=== PATIENT | male | born 1965 | race Caucasian/White ===

== ENCOUNTER 2016-06-25 22:09 | Inpatient (IN) ==
[2016-06-25] MEDS ORDERED: 0.9 % Sodium Chloride 1,000 ML IVC ONE (22:14)
[2016-06-25] MEDS ORDERED: *HR* HYDROmorphone (PF) 1 MG/ML SYRINGE IVP ONE (22:14)
[2016-06-25] MEDS ORDERED: Ondansetron 4 MG/2 ML VIAL IVP ONE (22:14)
--- NOTE | 2016-06-25 22:23 | Emergency Department Note ---
Disposition Clinical Impression: Small bowel obstruction, Nausea vomiting and diarrhea Disposition: Admitted As Inpatient Condition: Fair Time of Disposition: 00:08 Abdominal Pain HPI - General Chief Complaint: ED Abdominal Pain Stated Complaint: poss SBO Time Seen by Provider: 06/25/16 22:13 Source: patient, EMS Nursing Notes Reviewed: Yes Vital Signs Reviewed: Yes - History of Present Illness HPI Narrative: Patient is a 51-year-old male who presents to [facility] [place] ED with a chief complaint of abdominal pain. States his symptoms started last night about an hour and half after he had a meal of hamburger with onion rings. Admits to a few episodes of nausea and vomiting. Has had an episode of diarrhea earlier today and no bowel movement since then. Has felt hot but not measured a temperature. Patient denies any chest pain or difficulty breathing. Prior surgical history significant for cholecystectomy done at the [facility] in [place] many years ago. Past medical history also significant for type 2 diabetes, objective sleep apnea, hyperlipidemia, hypertension. Pt Subjective Complaint: abdominal pain Onset (ago): day(s) Consistency: constant, Worsening Location: diffuse Pain Severity: severe Pain Scale: 9 Quality: aching Radiation: none Migration to: no migration Improves with: nothing Worsens with: nothing Associated symptoms: Reports: nausea, vomiting, diarrhea, fever (subjective) Treatments prior to arrival: none - Related Data Home Medications Medication Instructions Recorded Confirmed Allopurinol [Zyloprim 100 MG] 100 mg PO DAILY 06/26/16 06/26/16 Atenolol [Tenormin] 37.5 mg PO DAILY 06/26/16 06/26/16 Atorvastatin Calcium [Lipitor] 30 mg PO DAILY 06/26/16 06/26/16 GlipiZIDE [Glipizide] 10 mg PO BID 06/26/16 06/26/16 Metformin [Glucophage] 1,000 mg PO BIDWM 06/26/16 06/26/16 Saxagliptin HCl [Onglyza] 5 mg PO DAILY 06/26/16 06/26/16 Tamsulosin HCl [Flomax] 0.8 mg PO DAILY 06/26/16 06/26/16 Allergies Allergy/AdvReac Type Severity Reaction Status Date / Time No Known Allergies Allergy Unverified 08/29/15 09:48 All systems ED: reviewed and negative except as stated. Abdominal Pain PMH - Past Medical History Medical history: Reports: diabetes, GERD, hypertension Male Surgical History: Reports: cholecystectomy Psychiatric history: Reports: no psych history - Social History Smoking status: Former smoker Alcohol use: Reports: none Drug use: Reports: none Physical Exam - General Limitations: no limitations General appearance: alert, in no apparent distress - Head Head exam: atraumatic, normocephalic, normal inspection - Eye Eye exam: Present: normal appearance, PERRL, EOMI - ENT ENT exam: normal exam, normal oropharynx, mucous membranes moist - Neck Neck exam: Present: normal inspection, full ROM, trachea midline - Chest Chest inspection: Present: normal inspection, symmetric chest wall rise - Respiratory Respiratory exam: Present: normal lung sounds bilaterally - Cardiovascular Cardiovascular exam: Present: regular rate, normal rhythm, normal heart sounds - Abdominal Exam Abdominal exam: Present: soft, tenderness, hyperactive bowel sounds. Absent: distention, guarding, rebound, rigidity Abdominal tenderness: Present: diffuse, severe - Extremities Exam Extremities exam: Present: normal inspection, full ROM. Absent: tenderness, pedal edema - Back Exam Back exam: Present: normal inspection, full ROM. Absent: tenderness - Neurological Exam Neurological exam: Present: alert, oriented X3 - Psychiatric Psychiatric exam: Present: normal affect, normal mood - Skin Skin exam: Present: warm, dry, intact, normal color Course Course Narrative: Patient seen and examined. [facility]. Abdominal x-ray had shown possible SBO. Abdominal lab work, CT abdomen and pelvis with IV contrast ordered. 1 L of fluids ordered as well as pain control and nausea control. - Reevaluation(s) Reevaluation #1: Lab work shows leukocytosis with a left shift. Lab work otherwise unremarkable. CT abdomen and pelvis shows ileus versus partial low-grade small bowel obstruction. We will admit to hospitalist service. I spoke with hospitalist Dr. Mathew who has accepted patient for admission. Time: 00:05 Vital Signs Temperature 98.3 F 06/25/16 22:14 Pulse Rate 89 06/25/16 22:14 Respiratory Rate 18 06/25/16 22:14 Blood Pressure 122/88 06/25/16 22:14 O2 Sat by Pulse Oximetry 95 06/25/16 22:14 Temperature 97.7 F 06/26/16 05:07 Pulse Rate 72 06/26/16 05:07 Respiratory Rate 18 06/26/16 05:07 Blood Pressure 148/83 06/26/16 05:07 O2 Sat by Pulse Oximetry 93 L 06/26/16 05:07 Oxygen Delivery Oxygen Delivery Room Air Abdominal Pain - Medical Records Medical records reviewed: Yes I reviewed the patient's medical records. - Lab Data Lab results reviewed: Yes I reviewed the patient's lab results. Result diagrams: 06/26/16 03:58 06/26/16 03:58 Lab Results 06/25/16 06/25/16 06/25/16 Range/Units 22:29 22:29 22:29 WBC 15.8 H (4.3-11.1) K/mcL RBC 6.17 H (4.19-5.50) M/mcL Hgb 16.5 (12.9-16.9) g/dL Hct 51.0 H (37.5-50.1) % MCV 82.7 L (83.0-100.0) fL MCH 26.7 L (28.0-33.3) pg MCHC 32.4 (31.6-35.5) g/dL RDW 14.5 (11.5-14.5) % Plt Count 198 (140-400) K/mcL MPV 11.6 (9.4-12.4) fL Immature Gran % 0.4 (0-4) % Seg Neutrophils % 72.9 % Lymphocytes % 19.2 % Monocytes % 6.3 % Eosinophils % 0.8 % Basophils % 0.4 % Neutrophils # 11.5 H (1.6-8.9) K/mcL Lymphocytes # 3.0 (0.6-4.6) K/mcL Monocytes # 1.0 (0.0-1.3) K/mcL Eosinophils # 0.1 (0.0-0.6) K/mcL Basophils # 0.1 (0.0-0.2) K/mcL Immature Plt Fraction 11.4 H (1.1-6.1) % Sodium (136-145) mEq/L Potassium (3.5-4.5) mEq/L Chloride (98-109) mEq/L Carbon Dioxide (19-29) mEq/L BUN (8-26) mg/dL Creatinine (0.72-1.25) mg/dL Est GFR ( Amer) (> 60) Est GFR (Non-Af Amer) (> 60) BUN/Creatinine Ratio (6-26) Glucose (70-99) mg/dL Calculated Osmolality (280-300) Lactic Acid 1.1 (0.5-2.2) mmol/L Calcium (8.6-10.8) mg/dL Total Bilirubin (0.2-1.2) mg/dL Direct Bilirubin (0.0-0.5) mg/dL Indirect Bilirubin (0.0-1.2) mg/dL AST (5-34) Units/L ALT (0-55) Units/L Alkaline Phosphatase (38-126) Units/L Troponin I 0.02 (0-0.03) ng/mL Serum Total Protein (6.0-8.3) g/dL Albumin (3.5-5.0) g/dL Globulin (2.4-3.5) g/dL Albumin/Globulin Ratio (1.1-2.2) Lipase (8-78) Units/L /02/01 Range/Units 22:29 WBC (4.3-11.1) K/mcL RBC (4.19-5.50) M/mcL Hgb (12.9-16.9) g/dL Hct (37.5-50.1) % MCV (83.0-100.0) fL MCH (28.0-33.3) pg MCHC (31.6-35.5) g/dL RDW (11.5-14.5) % Plt Count (140-400) K/mcL MPV (9.4-12.4) fL Immature Gran % (0-4) % Seg Neutrophils % % Lymphocytes % % Monocytes % % Eosinophils % % Basophils % % Neutrophils # (1.6-8.9) K/mcL Lymphocytes # (0.6-4.6) K/mcL Monocytes # (0.0-1.3) K/mcL Eosinophils # (0.0-0.6) K/mcL Basophils # (0.0-0.2) K/mcL Immature Plt Fraction (1.1-6.1) % Sodium 135 L (136-145) mEq/L Potassium 4.0 (3.5-4.5) mEq/L Chloride 103 (98-109) mEq/L Carbon Dioxide 22 (19-29) mEq/L BUN 19 (8-26) mg/dL Creatinine 1.18 (0.72-1.25) mg/dL Est GFR ( Amer) > 60 (> 60) Est GFR (Non-Af Amer) > 60 (> 60) BUN/Creatinine Ratio 16 (6-26) Glucose 160 H (70-99) mg/dL Calculated Osmolality 286 (280-300) Lactic Acid (0.5-2.2) mmol/L Calcium 9.0 (8.6-10.8) mg/dL Total Bilirubin 0.7 (0.2-1.2) mg/dL Direct Bilirubin 0.3 (0.0-0.5) mg/dL Indirect Bilirubin 0.4 (0.0-1.2) mg/dL AST 23 (5-34) Units/L ALT 41 (0-55) Units/L Alkaline Phosphatase 74 (38-126) Units/L Troponin I (0-0.03) ng/mL Serum Total Protein 7.5 (6.0-8.3) g/dL Albumin 3.4 L (3.5-5.0) g/dL Globulin 4.1 H (2.4-3.5) g/dL Albumin/Globulin Ratio 0.8 L (1.1-2.2) Lipase 19 (8-78) Units/L - Radiology Data Radiology results reviewed: Yes I reviewed the patient's radiology results. Abdomen/Pelvis CT 06/25/16 22:19 IMPRESSION: 1. Mild dilatation with air-fluid levels in the proximal jejunum. Gradual transition in the left mid abdomen with no discrete etiology detected. Pattern may represent ileus or partial low-grade bowel obstruction. 2. The distal ileum and colon are otherwise unremarkable. 3. Nonobstructing left renal calculus. D/ / Zeus Sandra MD / Zeus Sandra MD Interpreting Provider: Zeus Sandra MD - EKG Data EKG attestation: Yes I reviewed and interpreted this EKG. EKG results narrative: EKG done at 2240 shows normal sinus rhythm with a rate of [address] elevation or depression. Left axis deviation. Attestation Statement - Attestation Attestation: I examined this patient and my medical decision-making was reviewed with the SUPPORT ASSISTANT/PA/Advanced Practice Nurse/Resident Physician. I agree with the documented findings, disposition and treatment plan as described except to the extent set forth below. Patient to the emergency department for abdominal pain. The patient states it started after he ate at [employer] yesterday. [facility] that showed a small bowel obstruction. On exam he is awake and alert. He is ambulatory. He sitting upright. He has a soft abdomen with upper and left-sided tenderness without guarding. Plan. The patient is CT scan here as a possible early small bowel obstruction. His symptoms seem more consistent with a gastroenteritis. He will be admitted to medicine for observation.
[2016-06-25 22:39] LABS: Basophils # 0.1 K/mcL (0.0-0.2); Basophils % 0.4 %; Eosinophils # 0.1 K/mcL (0.0-0.6); Eosinophils % 0.8 %; Hemoglobin 16.5 g/dL (12.9-16.9); Immature Granulocytes % 0.4 % (0-4); Immature Platelets 11.4 % (1.1-6.1); Lymphocytes % 19.2 %; Mean Corpuscular HGB Conc 32.4 g/dL (31.6-35.5); Mean Corpuscular Hemoglobin 26.7 pg (28.0-33.3); Mean Corpuscular Volume 82.7 fL (83.0-100.0); Mean Platelet Volume 11.6 fL (9.4-12.4); Monocytes % 6.3 %; Neutrophils # 11.5 K/mcL (1.6-8.9); Platelet Count 198 K/mcL (140-400); Red Blood Count 6.17 M/mcL (4.19-5.50); Red Cell Distribution Width 14.5 % (11.5-14.5); Segmented Neutrophils % 72.9 %
[2016-06-25 22:52] LABS: Alanine Aminotransferase 41 Units/L (0-55); Albumin 3.4 g/dL (3.5-5.0); Albumin/Globulin Ratio 0.8 (1.1-2.2); Alkaline Phosphatase 74 Units/L (38-126); Aspartate Amino Transferase 23 Units/L (5-34); BUN/Creatinine Ratio 16 (6-26); Bilirubin,Direct 0.3 mg/dL (0.0-0.5); Bilirubin,Indirect 0.4 mg/dL (0.0-1.2); Bilirubin,Total 0.7 mg/dL (0.2-1.2); Blood Urea Nitrogen 19 mg/dL (8-26); Carbon Dioxide 22 mEq/L (19-29); Chloride 103 mEq/L (98-109); Globulin 4.1 g/dL (2.4-3.5); Glucose 160 mg/dL (70-99); Lipase 19 Units/L (8-78); Osmolality,Calculated 286 (280-300); Sodium 135 mEq/L (136-145); Total Protein 7.5 g/dL (6.0-8.3); eGFR For African Americans > 60 (> 60); eGFR For Non-African Americans > 60 (> 60)
--- NOTE | 2016-06-26 01:55 | Internal Med History&Physical ---
Date of Encounter: 06/26/16 Time of Encounter: 01:51 Assessment and Plan (1) Gastroenteritis Current visit: Yes Status: Acute Suspect most likely gastroenteritis given he has no vomiting and continues to have flatus, but cannot rule out early partial SBO Will support while NPO for now with maintenance IVF, analgesics, and anti- emetics If pain worsens, develop vomiting or bloody bowel movements, consider surgery consult and re-imaging Start empiric anaerobic coverage with Flagyl; will await blood and stool cultures prior to de-escalation (2) Non-insulin dependent type 2 diabetes mellitus Current visit: Yes Status: Chronic Stop home diabetic medications and start on low dose SSI q6HR accuchecks while NPO (3) Hypertension Current visit: Yes Status: Chronic Blood pressures WNL upon admission, will hold home anti-hypertensives for now while NPO Will order PRN Hydralazine IV for SBP > 170 Qualifiers: Qualified Code(s): I10 - Essential (primary) hypertension (4) LIS (obstructive sleep apnea) Current visit: Yes Status: Chronic Will continue home CPAP (5) DVT prophylaxis Current visit: Yes Status: Acute Heparin 5000 units BID Internal Medicine - H&P: HPI Chief complaint: abdominal pain Admitted From: Home Plans for Post Hospital Care: Home History of present illness: Mr. Yip is a 51 year old male who presents with abdominal pain, nausea, and diarrhea. He states that he first noticed nausea 2 nights ago before going to bed and had 3 episodes of diarrhea yesterday during the day. He describers the diarrhea as watery and green, but no blood. Has had no bowel movements since yesterday morning but states he has been passing gas still. Also reports a subjective fever and had some sweating during those episodes. He did not experience any abdominal pain until yesterday when he ate a hamburger and states the pain was diffuse in his upper abdomen. He states the pain is constant and is worse with movement but not worse with food intake. He tried Pepto Bismal which provided minimal relief. He denies having any vomiting, chest pain, shortness of breath, recent travels, or trying new foods. He does have history of cholecystectomy last year and also a feeding tube when he was a as he was born prematurely. He claims to have had a c-scope around 2007 for unknown reasons and states that was normal. Also states he had an EGD about 3-4 years ago but doesn't remember the results although hid state they "took samples". Past Med Surg Social Fam HX - Past Medical History Medical history: diabetes, GERD, hypertension Psychiatric history: no psych history - Social History Smoking Status: Former smoker Smokeless Tobacco Status: No Alcohol use: none Drug use: none - Family History Mother Age at : 62 Hx Family Neurologic Disorders: (Stroke) Father Hx Family Cardiac Disorders: (bypass sx) Internal Medicine - H&P: Meds Allopurinol [Zyloprim 100 MG] 100 mg PO DAILY 06/26/16 [History] Atenolol [Tenormin] 37.5 mg PO DAILY 06/26/16 [History] Atorvastatin Calcium [Lipitor] 30 mg PO DAILY 06/26/16 [History] GlipiZIDE [Glipizide] 10 mg PO BID 06/26/16 [History] Metformin [Glucophage] 1,000 mg PO BIDWM 06/26/16 [History] Saxagliptin HCl [Onglyza] 5 mg PO DAILY 06/26/16 [History] Tamsulosin HCl [Flomax] 0.8 mg PO DAILY 06/26/16 [History] Allergies No Known Allergies Allergy (Unverified 08/29/15 09:48) All Systems PM: A 10-system review of systems was performed and is negative for pertinent findings except as documented above in the HPI. - Constitutional Constitutional: fever(s), no chills, no night sweats - EENT Eyes: no change in vision, no discharge, no pain, no photophobia Ears: no ear discharge, no ear pain, no tinnitus Nose, mouth and throat: no dysphagia, no nasal discharge, no neck pain, no sore throat - Cardiovascular Cardiovascular ROS IM: diaphoresis, no chest pain, no dyspnea, no lightheadedness, no palpitations, no syncope - Respiratory Respiratory: no cough, no dyspnea, no wheezing, no excessive phlegm production - Gastrointestinal Gastrointestinal: abdominal pain (upper quadrants), diarrhea, nausea, no hematemesis, no hematochezia, no melena, no vomiting - Genitourinary Genitourinary ROS male: no hematuria, no urinary frequency, no urinary hesitancy , no urinary incontinence - Musculoskeletal Musculoskeletal ROS IM: no numbness, no tingling - Integumentary Integumentary IM: no rash, no unusual bruising - Neurological Neurological ROS: no confusion, no convulsions, no focal weakness, no numbness, no tingling, no tremor(s) - Hematologic/Lymphatic Hematologic/Lymphatic: no easy bruising - Constitutional Vitals: Temp Pulse Resp BP Pulse Ox 98.3 F 72 16 110/76 97 06/25/16 22:14 06/25/16 23:36 06/26/16 00:27 06/26/16 00:27 06/25/16 23:36 General appearance: Present: cooperative, morbidly obese, pleasant, no acute distress, answers questions appropriately - Head Head exam: Present: atraumatic, normocephalic - Eye Eye exam: Present: PERRL, conjuntiva pink, sclera anicteric - Neck Neck exam general surgery: Present: supple, trachea midline. Absent: lymphadenopathy - Respiratory Respiratory exam: Present: CTAB. Absent: accessory muscle use, rales, rhonchi, wheezes - Cardiovascular Cardiovascular exam: Present: RRR, +S1, +S2. Absent: diastolic murmur, gallop, rubs, systolic murmur - GI/Abdominal GI/Abdominal exam: Present: normal bowel sounds, soft, tenderness (LUQ > RUQ), no peritoneal signs. Absent: distended, firm, guarding, hernia Additional comments: scars noted s/p lap rolando 1 year ago, also has LUQ scar from feeding tube when he was a - Extremities Exam Extremities exam: Present: warm, radial pulses palpable and symetrical. Absent : calf tenderness, cyanotic, pedal edema - Neurological Exam Neurological exam: Present: alert, no focal deficits. Absent: facial droop, speech deficit - Skin Skin exam: Present: dry, intact Internal Med - H&P Results - Labs CBC & Chem 7: 06/25/16 22:29 06/25/16 22:29
[2016-06-26] MEDS ORDERED: Dextrose Gel 15 GM PO PRN ×2 (02:15)
[2016-06-26] MEDS ORDERED: Naloxone 0.4 MG/ML INJ IVP PRN (02:15)
[2016-06-26] MEDS ORDERED: D5% in Water 1,000 ML IV PRN (02:15)
[2016-06-26] MEDS ORDERED: *HR* Dextrose 50 % in Water (Syg) 50 ML SYRINGE IVP PRN (02:15)
[2016-06-26] MEDS ORDERED: Ondansetron 4 MG/2 ML VIAL IVP PRN (02:15)
[2016-06-26] MEDS ORDERED: *HR* Morphine 2 MG/ML SYRINGE IVP PRN (02:15)
[2016-06-26] MEDS: 0.9 % Sodium Chloride 1,000 ML IVC SCH ×2 (03:14→15:05)
[2016-06-26 05:13] LABS: Basophils % 0.3 %; Eosinophils # 0.1 K/mcL (0.0-0.6); Eosinophils % 0.9 %; Hematocrit 47.8 % (37.5-50.1); Hemoglobin 15.6 g/dL (12.9-16.9); Immature Granulocytes % 0.5 % (0-4); Lymphocytes # 2.2 K/mcL (0.6-4.6); Lymphocytes % 17.7 %; Mean Corpuscular HGB Conc 32.6 g/dL (31.6-35.5); Mean Corpuscular Hemoglobin 27.1 pg (28.0-33.3); Mean Platelet Volume 12.5 fL (9.4-12.4); Monocytes # 0.7 K/mcL (0.0-1.3); Monocytes % 5.9 %; Neutrophils # 9.4 K/mcL (1.6-8.9); Platelet Count 177 K/mcL (140-400); Red Blood Count 5.76 M/mcL (4.19-5.50); Red Cell Distribution Width 14.3 % (11.5-14.5); Segmented Neutrophils % 74.7 %
--- NOTE | 2016-06-26 05:16 | Event Note ---
Date of Encounter: 06/26/16 Time of Encounter: 05:16 Patient seen and examined with medical education manager. Agree with assessment. Suspect gastroenteritis vs. food poisoning.
[2016-06-26 05:33] LABS: Hemoglobin A1C 7.7 %
[2016-06-26 05:36] LABS: BUN/Creatinine Ratio 17 (6-26); Blood Urea Nitrogen 18 mg/dL (8-26); Calcium 8.1 mg/dL (8.6-10.8); Carbon Dioxide 21 mEq/L (19-29); Chloride 105 mEq/L (98-109); Glucose 177 mg/dL (70-99); Osmolality,Calculated 288 (280-300); Potassium 4.2 mEq/L (3.5-4.5); Sodium 136 mEq/L (136-145); eGFR For African Americans > 60 (> 60); eGFR For Non-African Americans > 60 (> 60)
[2016-06-26] MEDS: *HR* Heparin 5,000 UNIT/ML VIAL SQ SCH ×2 (05:36→17:15)
[2016-06-26] MEDS: Pantoprazole 40 MG VIAL IVP SCH ×2 (05:36→17:15)
[2016-06-26] MEDS: Insulin LISPRO 300 UNITS/3 ML VIAL SQ SCH ×3 (05:36→18:21)
[2016-06-26] MEDS: MetroNIDAZOLE 500 MG/100 ML 500 MG/100 ML BAG IVPB SCH ×3 (08:30→23:54)
[2016-06-26] MEDS ORDERED: Acetaminophen 325 MG TABLET PO PRN (10:22)
--- NOTE | 2016-06-26 16:23 | Event Note ---
Date of Encounter: 06/26/16 Time of Encounter: 16:19 patient seen at the bedside, admitted for abdominal pain. first had diarrhea , then started castillo abdominal pain, has not moved bowels for the last 2 days, however says that he is passing gas. CT abd done that shows ileus or partial SBO. On exam today, he says the pain is a lot better, no n/v. he has leucocytosis that has improved. bowel sounds present on exam. HE may have an episode of viral GE causing diarrhea followed by ileus. will continue the flagyl for now, Was kept NPO overnight. will start clears today and see if he tolerates. electrolytes are normal.' wean off IVF.
[2016-06-26] MEDS ORDERED: Insulin LISPRO 300 UNITS/3 ML VIAL SQ SCH ×2 (21:00)
[2016-06-27] MEDS: 0.9 % Sodium Chloride 1,000 ML IVC SCH ×2 (01:05→10:04)
[2016-06-27] MEDS: *HR* Heparin 5,000 UNIT/ML VIAL SQ SCH (05:17)
[2016-06-27] MEDS: Pantoprazole 40 MG VIAL IVP SCH (05:17)
[2016-06-27] MEDS: MetroNIDAZOLE 500 MG/100 ML 500 MG/100 ML BAG IVPB SCH (07:23)
[2016-06-27] MEDS: Insulin LISPRO 300 UNITS/3 ML VIAL SQ SCH ×2 (08:00→12:20)
[2016-06-27 08:31] LABS: Basophils % 0.5 %; Eosinophils # 0.1 K/mcL (0.0-0.6); Eosinophils % 1.6 %; Hematocrit 45.5 % (37.5-50.1); Hemoglobin 14.5 g/dL (12.9-16.9); Immature Granulocytes % 0.4 % (0-4); Lymphocytes # 1.9 K/mcL (0.6-4.6); Lymphocytes % 25.4 %; Mean Corpuscular HGB Conc 31.9 g/dL (31.6-35.5); Mean Corpuscular Hemoglobin 26.6 pg (28.0-33.3); Mean Corpuscular Volume 83.5 fL (83.0-100.0); Mean Platelet Volume 12.1 fL (9.4-12.4); Monocytes # 0.5 K/mcL (0.0-1.3); Monocytes % 7.2 %; Neutrophils # 4.9 K/mcL (1.6-8.9); Platelet Count 164 K/mcL (140-400); Red Blood Count 5.45 M/mcL (4.19-5.50); Red Cell Distribution Width 14.2 % (11.5-14.5); Segmented Neutrophils % 64.9 %
[2016-06-27 08:47] LABS: BUN/Creatinine Ratio 12 (6-26); Blood Urea Nitrogen 13 mg/dL (8-26); Calcium 7.9 mg/dL (8.6-10.8); Carbon Dioxide 25 mEq/L (19-29); Chloride 108 mEq/L (98-109); Glucose 145 mg/dL (70-99); Osmolality,Calculated 293 (280-300); Potassium 3.9 mEq/L (3.5-4.5); Sodium 140 mEq/L (136-145); eGFR For African Americans > 60 (> 60); eGFR For Non-African Americans > 60 (> 60)
[2016-06-27 12:09] VITALS: BP 128/80
--- NOTE | 2016-06-27 15:17 | Discharge Summary ---
Date of Encounter: 06/27/16 Time of Encounter: 15:15 - Discharge Diagnosis (1) Ileus Priority: Primary Status: Acute (2) Gastroenteritis Priority: Primary Status: Acute - Discharge Medications Prescriptions: MetroNIDAZOLE [Flagyl] 500 mg PO TID 5 Days Home Medications: Allopurinol [Zyloprim 100 MG] 100 mg PO DAILY 06/26/16 [History] Atenolol [Tenormin] 12.5 mg PO DAILY 06/26/16 [History] Atorvastatin Calcium [Lipitor] 10 mg PO DAILY 06/26/16 [History] GlipiZIDE [Glipizide] 10 mg PO BID 06/26/16 [History] Lisinopril [Zestril] 20 mg PO DAILY 06/26/16 [History] Meloxicam [Mobic] 15 mg PO DAILY 06/26/16 [History] Metformin [Glucophage] 1,000 mg PO BIDWM 06/26/16 [History] Polyethylene Glycol 3350 [MiraLAX bowel prep] 17 gm PO DAILY 06/26/16 [History] Saxagliptin HCl [Onglyza] 5 mg PO DAILY 06/26/16 [History] Tamsulosin HCl [Flomax] 0.8 mg PO DAILY 06/26/16 [History] MetroNIDAZOLE [Flagyl] 500 mg PO TID 5 Days 06/27/16 [Rx] Allergies/Adverse Reactions: Allergies No Known Allergies Allergy (Unverified 08/29/15 09:48) Date of admission: 06/26/16 00:06 [facility] Discharging clinician: Ailyn Sosa Anticipated date of discharge: 06/27/16 - Patient Status Disposition: Home, Self-Care Condition: Fair Functional capacity at discharge: independent ambulation Overall status at discharge: patient is back to baseline - Discharge Instructions Follow Up With: [facility] [Primary Care Provider] - - Diet and Activity Activity: resume usual activities as tolerated Diet: advance to your usual diet Interval History: Mr. Yip is a 51 year old male who presents with abdominal pain, nausea, and diarrhea. first had diarrhea , then started castillo abdominal pain, has not moved bowels for the last 2 days, however says that he is passing gas. CT abd done that shows ileus or partial SBO. On exam today, he says the pain is a lot better, no n/v. he has leucocytosis that has improved. bowel sounds present on exam. HE may have an episode of viral GE causing diarrhea followed by post enteritis ileus that has resolved. diet was gradually advanced which he tolerated well . I will dc him with 5 more days of flagyl. he is being dc in stable condition. Hospital course: Mr. Yip is a 51 year old male Time spent discussing smoking cessation with patient: more than 10 minutes - Time Spent with Patient Total time spent providing and/or coordinating discharge services: Greater than 30 minutes - Constitutional Vitals: Temp Pulse Resp BP Pulse Ox 98.0 F 63 18 128/80 97 06/27/16 12:07 06/27/16 12:07 06/27/16 12:07 06/27/16 12:07 06/27/16 12:07 General appearance: Present: cooperative, morbidly obese, pleasant, no acute distress, answers questions appropriately Exam: - Head Head exam: Present: atraumatic, normocephalic - Eye Eye exam: Present: PERRL, conjuntiva pink, sclera anicteric - Neck Neck exam general surgery: Present: supple, trachea midline. Absent: lymphadenopathy - Respiratory Respiratory exam: Present: CTAB. Absent: accessory muscle use, rales, rhonchi, wheezes - Cardiovascular Cardiovascular exam: Present: RRR, +S1, +S2. Absent: diastolic murmur, gallop, rubs, systolic murmur - GI/Abdominal GI/Abdominal exam: Present: normal bowel sounds, soft, non tender, no peritoneal signs. Absent: distended, firm, guarding, hernia Additional comments: scars noted s/p lap [place] 1 year ago, also has LUQ scar from feeding tube when he was a - Extremities Exam Extremities exam: Present: warm, radial pulses palpable and symetrical. Absent : calf tenderness, cyanotic, pedal edema - Neurological Exam Neurological exam: Present: alert, no focal deficits. Absent: facial droop, speech deficit - Skin Skin exam: Present: dry, intact
--- NOTE | 2016-06-28 15:10 | Electrocardiograph Report ---
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
== END 2016-06-27 16:04 | disposition home or self-care (01) | DRG 389 ==
LOC: EMEROO 22:09 → SUATTDRO 06-26 00:06 → 3ANU 06-26 00:06
PROVIDERS: ADMIT Internal Medicine; ATTEND Internal Medicine Endocrinology, Diabetes & Metabolism

== ENCOUNTER 2018-10-09 12:25 | Inpatient (IN) ==
--- NOTE | 2018-10-09 12:59 | Emergency Department Note ---
Disposition Clinical Impression: RACHID (acute kidney injury) Disposition: Admitted As Inpatient Condition: Fair Time of Disposition: 15:15 General Adult HPI - General Chief complaint: ED Abdominal Pain Stated complaint: flank pain Time Seen by Provider: 10/09/18 12:27 Source: patient Mode of arrival: EMS Limitations: no limitations Nursing Notes Reviewed: Yes Vital Signs Reviewed: Yes - History of Present Illness HPI Narrative: Patient is a 53-year-old male who is being sent from the [place] for concern for acute renal failure. Patient with known history of hypertension, lipidemia, COPD as well as diabetes mellitus type 2. Patient currently on sulfonylurea medication for diabetes is uncontrolled. Patient states over the past week he has had generalized malaise and fatigue with injected fevers and chills no nausea, vomiting or abdominal pain. Has also had slight cough without production. He states this is very similar to his COPD. He is not on oxygen at home. He states that he was [facility] as he was concerned that he had a kidney infection, at that point in time a serum creatinine was performed which showed a significant elevation. Patient states he has been diagnosed with kidney disease in the past, he was also follow-up with nephrology however never did. He does not know the timeline upon this diagnosis. Upon review of patient[facility] that was sent today, patient had a CT of the abdomen and pelvis which showed nonischemic and left-sided nephrolithiasis without obstruction or hydronephrosis, chest x-ray shows no acute process, hemoglobin is 15.4, WBCs of 6.7, calcium of 8.4, sodium 134, potassium of 4.0, chloride 100, bicarbonate 24, glucose of 33, serum creatinine of 5.36. Urinalysis is clear, with negative bilirubin, negative ketones, moderate blood with negative nitrate and negative leuk esterase. Pain Scale: 8 - Related Data Home Medications Medication Instructions Recorded Confirmed Allopurinol [Zyloprim 100 MG] 100 mg PO DAILY 06/26/16 10/09/18 Atenolol [Tenormin] 12.5 mg PO DAILY 06/26/16 10/09/18 Atorvastatin Calcium [Lipitor] 10 mg PO DAILY 06/26/16 10/09/18 Lisinopril [Zestril] 20 mg PO DAILY 06/26/16 10/09/18 Saxagliptin HCl [Onglyza] 5 mg PO DAILY 06/26/16 10/09/18 Tamsulosin HCl [Flomax] 0.8 mg PO DAILY PRN 06/26/16 06/26/16 glipiZIDE [Glipizide] 10 mg PO BID 06/26/16 10/09/18 metFORMIN [Glucophage] 1,000 mg PO BIDWM 06/26/16 10/09/18 Allergies Allergy/AdvReac Type Severity Reaction Status Date / Time No Known Allergies Allergy Unverified 08/29/15 09:48 All systems ED: reviewed and negative except as stated. Review of Systems: As Per HPI Constitutional: Denies: fever, chills ENT ED: Reports: congestion Cardiovascular: Denies: chest pain, palpitations, dyspnea on exertion, syncope Respiratory: Reports: cough. Denies: dyspnea, wheezes, hemoptysis Gastrointestinal: Denies: abdominal pain, nausea, vomiting, hematemesis, melena, hematochezia Genitourinary: Denies: urgency, dysuria, frequency Musculoskeletal: Reports: back pain. Denies: neck pain Integumentary: Denies: rash Neurological: Denies: headache, weakness, confusion Endocrine: Reports: fatigue Past Medical History - Past Medical History Medical history: Reports: diabetes, GERD, hypertension Surgical history: Reports: cholecystectomy Psychiatric history: Reports: no psych history - Social History Smoking Status: Former smoker Smokeless Tobacco Status: No Alcohol use: Reports: none Drug use: Reports: none Physical Exam General: Conversant. No apparent distress. Follow commands. Appears stated age. Neck: No JVD. Trachea midline. Neck supple. Eyes: PERRL. No scleral icterus. HENT: Normocephalic and atraumatic. Moist mucus membranes. Cardiovascular: Regular rate and rhythm. Normal S1 and S2. No murmurs appreciated. Normal capillary refill. Extremities well perfused with 2+ distal pulses bilaterally. No edema. Pulmonary: Normal and equal breath sounds bilaterally, anteriorly and posteriorly. No wheezes, rales, or rhonchi. Not in respiratory distress. Speaks in full sentences. Abdomen: Soft, nondistended, without tenderness. No bruits or masses. No guarding or rebound. Patient with no CVA tenderness bilaterally. No cervical, thoracic or midline tenderness to the lumbar spine. Neuro: Alert and oriented x3. No slurred speech. No focal deficits noted. Skin: No rashes noted on visualized skin. Musculoskeletal: No bony abnormalities visualized. Moves all extremities. Psych: Normal mood. Pleasant. Makes appropriate eye contact. - General General appearance: alert Course - Consultations Consultation #1: Spoke with Dr. Bautista, with nephrology, states the patient at this point in time is a candidate for admission, as the patient is currently stable and there is no acute intervention is needed here in the ER prior to admission, she states admitted to the hospital service and she will consult and follow along for further evaluation. Time: 14:00 Vital Signs Temperature 98.2 F 10/09/18 12:32 Pulse Rate 62 10/09/18 12:32 Respiratory Rate 18 10/09/18 12:32 Blood Pressure 140/87 10/09/18 12:32 O2 Sat by Pulse Oximetry 98 10/09/18 12:32 Temperature 98.2 F 10/09/18 12:32 Pulse Rate 56 10/09/18 15:04 Respiratory Rate 15 10/09/18 15:04 Blood Pressure 137/84 10/09/18 15:04 O2 Sat by Pulse Oximetry 97 10/09/18 15:04 Oxygen Delivery Oxygen Delivery Room Air Medical Decision Making - [facility] Narrative Medical decision making narrative: Patient is a 53-year-old male who is presenting for concern of acute renal fail ure by the [place]. On examination, patient is alert and oriented 3, in no acute distress, leaning of bilateral flank pain. Patient's vital signs are within normal limits. Upon [facility] the [facility], it appears the patient has chronic renal failure with a recent serum creatinine of 5.45, the only recent blood work that was performed at [place] was in 2017 which showed a normal serum creatinine. Patient states that he is currently urinating without any symptoms. Patient's potassium is within normal limits. This is appears to chronic renal failure with possible acute component. I did discuss this case with Dr. Bautista, with nephrology, who agrees with admission at this point, she will perform consultation once patient is admitted. Patient agrees with disposition of admission. Further lab work including lactic acidosis was performed here which was unremarkable. Patient otherwise is remained stable here in the ER. - Medical Records Medical records reviewed: Yes I reviewed the patient's medical records. - Lab Data Lab results reviewed: Yes I reviewed the patient's lab results. Lab Results 10/09/18 Range/Units 13:13 Lactic Acid 1.1 (0.5-2.2) mmol/L - Radiology Data Radiology results reviewed: Yes I reviewed the patient's radiology results.
[2018-10-09] MEDS ORDERED: *HR* FentaNYL (PF) 100 MCG/2 ML VIAL IVP ONE (14:27)
--- NOTE | 2018-10-09 14:30 | Emergency Department Note ---
Disposition Clinical Impression: RACHID (acute kidney injury) Disposition: Admitted As Inpatient Condition: Fair Referrals: [facility],PCP [Primary Care Provider] - Forms: ED Satisfaction Letter, Work/School Release Time of Disposition: 14:29 General Adult HPI - General Chief complaint: ED Abdominal Pain Stated complaint: flank pain Time Seen by Provider: 10/09/18 12:27 Source: patient - History of Present Illness Pain Scale: 8 - Related Data Home Medications Medication Instructions Recorded Confirmed Allopurinol [Zyloprim 100 MG] 100 mg PO DAILY 06/26/16 10/09/18 Atenolol [Tenormin] 12.5 mg PO DAILY 06/26/16 10/09/18 Atorvastatin Calcium [Lipitor] 10 mg PO DAILY 06/26/16 10/09/18 Lisinopril [Zestril] 20 mg PO DAILY 06/26/16 10/09/18 Saxagliptin HCl [Onglyza] 5 mg PO DAILY 06/26/16 10/09/18 Tamsulosin HCl [Flomax] 0.8 mg PO DAILY PRN 06/26/16 06/26/16 glipiZIDE [Glipizide] 10 mg PO BID 06/26/16 10/09/18 metFORMIN [Glucophage] 1,000 mg PO BIDWM 06/26/16 10/09/18 Allergies Allergy/AdvReac Type Severity Reaction Status Date / Time No Known Allergies Allergy Unverified 08/29/15 09:48 Past Medical History - Past Medical History Medical history: Reports: diabetes, GERD, hypertension Surgical history: Reports: cholecystectomy Psychiatric history: Reports: no psych history - Social History Smoking Status: Former smoker Smokeless Tobacco Status: No Alcohol use: Reports: none Drug use: Reports: none Physical Exam - General General appearance: alert Course - Consultations Consultation #1: discussed case with Dr. Cummins and she accepts patient to her service. Time: 15:18 Vital Signs Temperature 98.2 F 10/09/18 12:32 Pulse Rate 62 10/09/18 12:32 Respiratory Rate 18 10/09/18 12:32 Blood Pressure 140/87 10/09/18 12:32 O2 Sat by Pulse Oximetry 98 10/09/18 12:32 Temperature 98.2 F 10/09/18 12:32 Pulse Rate 56 10/09/18 15:04 Respiratory Rate 15 10/09/18 15:04 Blood Pressure 137/84 10/09/18 15:04 O2 Sat by Pulse Oximetry 97 10/09/18 15:04 Oxygen Delivery Oxygen Delivery Room Air Medical Decision Making - Lab Data Lab Results 10/09/18 Range/Units 13:13 Lactic Acid 1.1 (0.5-2.2) mmol/L Attestation Statement - Attestation Attestation: I reviewed the residents documentation and agree with the residents assessment and plan of care. I have personally had face to face time with the patient. (Brief History, Brief Exam, and MDM) I personally supervised and was present for the reyez/critical portions of the following procedures completed by the resident: (add procedures performed here). 53 year old male prsents ot the ED with complaints of bilateral flank pain [facility] and it appears he has worsening crn of 5.6 and last knonw we have was normal. CT shows a renal stone without hydro. WE have discussed case with nephrology and they have agreed to see in consult. ADMit to medicine.
[2018-10-09] MEDS ORDERED: Naloxone 0.4 MG/ML INJ IVP PRN (15:53)
[2018-10-09] MEDS ORDERED: Ondansetron 4 MG/2 ML VIAL IVP PRN (15:53)
--- NOTE | 2018-10-09 16:06 | Internal Med History&Physical ---
Date of Encounter: 10/09/18 Time of Encounter: 15:56 Internal Medicine - H&P: HPI Chief complaint: Flank pain Admitted From: Emergency Dept History of present illness: Freddie Yip is a 53 M w hx morbid obesity, HTN, HLD, DM2, CKD3a, gout, COPD, who p/w renal failure. Pt transferred to [place] ED from [place] [facility] for labs suggestive of severe RACHID. Patient states that two weeks ago, he attended a convention and one of his buddies was sick and accidentally cough/sneezed on him. About a week later, he started to develop "common crud" which he uses to describe a viral syndrome of malaise, myalgias, and fatigue, associated with coughing and diarrhea. Two days ago, he noticed crampy/achy pain in his R flank, and today woke up from sleep due to sharp pains in bilateral flank. Patient states that he's been nauseated the last few days, too, and therefore not eating much, which he knows is bad to skip meals due to his diabetes. He has therefore been trying to stay hydrated and reports drinking as much as what he thinks is 1 gallon of water daily. Sugars ranging 150-300 in last few days. Diarrhea finally improving. Pt states that he continues to have fever/chills but continues to urinate, more than his usual due to the fluids he's drinking. He denies rashes, denies joint swelling other than few remote gout attacks, denies oliguria or concentration of urine. In the [place] ED, pt vitals unremarkable. Labs show Hb 15, WBC 7, Na 134, K 4, Cl 100, bicarb 24, glucose 33, Cr 5.4. UA moderate blood. He underwent CT a/p showing nonobstructive left sided nephrolithiasis, and CXR unremarkable. Sent to [place] for further eval. Past medical, surgical, social, and family histories reviewed and updated as below, with addition to FHx of several family members with heart disease but denies FHx of renal disease. Past Med Surg Social Fam HX - Past Medical History Medical history: diabetes, GERD, hypertension Additional medical history: Sleep apnea. Gout Psychiatric history: no psych history - Past Surgical History Surgical History: cholecystectomy - Social History Smoking Status: Former smoker Smokeless Tobacco Status: No Alcohol use: none Drug use: none - Family History Mother Hx Family Neurologic Disorders: (Stroke) Father Hx Family Cardiac Disorders: (bypass sx) Internal Medicine - H&P: Meds Allopurinol [Zyloprim 100 MG] 100 mg PO DAILY 06/26/16 [History] Tamsulosin HCl [Flomax] 0.8 mg PO DAILY PRN 06/26/16 [History] Aspirin [Lo-Dose Aspirin EC] 81 mg PO DAILY 10/09/18 [History] Atorvastatin Calcium [Lipitor] 10 mg PO DAILY 10/09/18 [History] Cholecalciferol (Vitamin D3) [Vitamin D3] 3,000 unit PO DAILY 10/09/18 [History] Dulaglutide [Trulicity] 1 insert SQ QWEEK 10/09/18 [History] Glimepiride [Amaryl] 8 mg PO QAM 10/09/18 [History] Losartan/Hydrochlorothiazide [Losartan-Hctz 100-12.5 mg Tab] 1 tab PO DAILY 10/09/18 [History] Metoprolol Succinate [Kapspargo Sprinkle] 25 mg PO DAILY 10/09/18 [History] Omeprazole [PriLOSEC] 20 mg PO DAILY 10/09/18 [History] Allergy/AdvReac Type Severity Reaction Status Date / Time No Known Allergies Allergy Unverified 08/29/15 09:48 All Systems PM: A 10-system review of systems was performed and is negative for pertinent findings except as documented above in the HPI. - Constitutional Vitals: Temp Pulse Resp BP Pulse Ox 98.2 F 56 15 137/84 97 10/09/18 12:32 10/09/18 15:04 10/09/18 15:04 10/09/18 15:04 10/09/18 15:04 Exam: General: NAD, AAOx3, good eye contact, uncomfortable appearing and morbidly obese with mild lisbet complexion but overall nontoxic Head: Atraumatic, normocephalic. Face symmetric Eyes: EOMI, sclerae anicteric ENT: Mucous membranes moist. Normal oral mucosa and poor dentition. Trachea midline. Thoracic: No visible chest wall deformities. Normal breath sounds b/l, no wheezing or crackles Cardio: Normal S1 and S2, regular rate and rhythm. Unable to assess for JVD. Abdomen: Firm but not tense or distended, nontender, obese Extremities: Warm, well perfused. DP pulses 2+ b/l. No clubbing, cyanosis. Does have 1+ pitting edema b/l legs Skin: Intact. No rashes, bruises, or ulcers Neuro: Awake, fully oriented. Good memory, concentration, attention. Speech fluent. CN II-XII grossly intact. Strength 5/5 in b/l UE and LE - Summary of Assessment and Plan Summary of Assessment and Plan: Freddie Yip is a 53 M w hx morbid obesity, HTN, HLD, DM2 c/b microalbuminuria, gout, COPD, who p/w b/l fevers, myalgias, malaise, diarrhea, and flank pain, found to have elevated Cr, consistent with RACHID suspected from acute viral illness and dehydration. RACHID: hx viral illness w nausea/diarrhea and membranes dry, however does have b/l leg edema, and review of remote labs shows Cr 1.1 w UA mild proteinuria suggestive of early diabetic nephrosclerosis, and recent [facility] U[facility] w hematuria. Hx gout could indicate uric acid nephropathy or perhaps "gout" was synovitis. Very possible acute on chronic kidney disease, too. - LR@125 and see if improves w hydration - collect urine for UA, microscopy, Ulytes, p:cr - 24h urine - strict I&Os - recheck BMP, add uric acid, Mg, P - STACY, ANCA - BMP daily - hold metformin, allopurinol, lisinopril - Neph consult for additional evaluation DM2: uncontrolled, holding home PO, utilize SSI HTN: home toprol 25, holding home hctz/losartan 100/12.5 HLD: home lipitor 10, ASA 81 COPD: nebs prn but not on home O2 Gout: holding allopurinol GERD: holding PPI Morbid obesity: BMI 41 PPx: sqh Activity: ambulate FEN: renal, MIVF as above Lines: PIV Consults: Neph Code: Full Dispo: patient requires inpatient eval and management at this time. Anticipate 2-3 days. Will be homegoing
[2018-10-09] MEDS ORDERED: D5% in Water 1,000 ML IVC PRN (16:21)
[2018-10-09] MEDS ORDERED: *HR* Dextrose 50 % in Water (Syg) 50 ML SYRINGE IVP PRN (16:21)
[2018-10-09] MEDS ORDERED: Dextrose Gel 15 GM/37.5 ML TUBE PO PRN ×2 (16:21)
[2018-10-09 16:58] LABS: Hematocrit 46.3 % (37.5-50.1); Hemoglobin 15.5 g/dL (12.9-16.9); Mean Corpuscular HGB Conc 33.5 g/dL (31.6-35.5); Mean Corpuscular Hemoglobin 28.8 pg (28.0-33.3); Mean Corpuscular Volume 85.9 fL (83.0-100.0); Mean Platelet Volume 12.3 fL (9.4-12.4); Platelet Count 140 K/mcL (140-400); Red Blood Count 5.39 M/mcL (4.19-5.50); Red Cell Distribution Width 12.9 % (11.5-14.5); White Blood Count 7.6 K/mcL (4.3-11.1)
[2018-10-09 17:07] LABS: Prothrombin Time 11.9 Seconds (9.4-12.1)
[2018-10-09 17:21] LABS: Albumin 3.9 g/dL (3.5-5.7); Albumin/Globulin Ratio 1.1 (1.1-2.2); Bilirubin,Direct 0.1 mg/dL (0.0-0.2); Bilirubin,Indirect 0.5 mg/dL (0.0-1.2); Bilirubin,Total 0.6 mg/dL (0.3-1.0); Calcium 8.7 mg/dL (8.6-10.3); Globulin 3.4 g/dL (2.4-3.5); Magnesium 1.9 mg/dL (1.6-2.6); Phosphorous 4.4 mg/dL (2.7-4.5); Potassium 3.8 mEq/L (3.5-5.1); Total Protein 7.3 g/dL (6.4-8.9)
[2018-10-09] MEDS: Ringers Solution, Lactated 1,000 ML IVC SCH (18:49)
[2018-10-09] MEDS: *HR* Heparin 5,000 UNIT/ML VIAL SQ SCH (18:50)
[2018-10-09] MEDS: Insulin LISPRO 300 UNITS/3 ML VIAL SQ SCH ×2 (18:50→20:21)
[2018-10-09 20:34] LABS: Bilirubin,Urine Negative (Negative); Blood,Urine Moderate (Negative); Clarity,Urine Clear (Clear); Color,Urine Yellow (Yellow); Glucose,Urine (UA) Normal (Normal); Ketones,Urine Negative (Negative); Leukocyte Esterase,Urine Negative (Negative); Nitrite,Urine Negative (Negative); PH,Urine 5.5 pH Units (5.0-8.0); Protein,Urine 30 mg/dL (Neg-Trace); Specific Gravity,Urine 1.019 (1.010-1.025); Urobilinogen,Urine Normal (Normal)
[2018-10-09 20:36] LABS: Bacteria,Urine None Seen per hpf (None-Few); Hyaline Casts,Urine None Seen per lpf (None-Few); Squamous Epithelial Cell,Urine Moderate per lpf (None-Few); WBC,Urine 0-3 per hpf (0-3)
[2018-10-09 20:59] LABS: Protein/Creatinine Ratio,Urine 0.45 mg/mg (0.00-0.20); Sodium, Urine 37.2 mEq/L
[2018-10-10] MEDS: *HR* Heparin 5,000 UNIT/ML VIAL SQ SCH ×4 (00:49→23:13)
[2018-10-10] MEDS: Ringers Solution, Lactated 1,000 ML IVC SCH (02:24)
[2018-10-10 05:23] LABS: Hematocrit 42.2 % (37.5-50.1); Mean Corpuscular HGB Conc 32.7 g/dL (31.6-35.5); Mean Corpuscular Hemoglobin 27.7 pg (28.0-33.3); Mean Corpuscular Volume 84.7 fL (83.0-100.0); Mean Platelet Volume 12.1 fL (9.4-12.4); Platelet Count 115 K/mcL (140-400); Red Blood Count 4.98 M/mcL (4.19-5.50); White Blood Count 6.8 K/mcL (4.3-11.1)
[2018-10-10 05:24] LABS: Hemoglobin 13.8 g/dL (12.9-16.9)
[2018-10-10 05:42] LABS: Calcium 8.5 mg/dL (8.6-10.3); Potassium 4.1 mEq/L (3.5-5.1)
--- NOTE | 2018-10-10 07:29 | Internal Med Progress Note ---
Hospitalist Progress Note - Encounter Date of Encounter: 10/10/18 Time of Encounter: 07:29 - Subjective Interval History: Pt still urinating overnight, no SOB, legs not swollen or painful. Does mention that he has bilateral aching flank pain. No fevers or rashes. - Exam Vitals: Temp Pulse Resp BP Pulse Ox 97.8 F 51 18 120/77 99 10/10/18 07:27 10/10/18 07:27 10/10/18 07:27 10/10/18 07:27 10/10/18 07:27 Exam: General: NAD, good eye contact, comfortable appearing, morbidly obese Thoracic: Normal breath sounds b/l, no wheezing or crackles Cardio: Normal S1 and S2, regular rate and rhythm. Abdomen: Firm but not tense or distended, nontender, obese Extremities: Warm, well perfused. DP pulses 2+ b/l. Trace non-pitting edema b/l legs improved from admission Skin: Intact. No rashes, bruises, or ulcers Neuro: Awake, fully oriented. Speech fluent. - Summary of Assessment and Plan Summary of Assessment and Plan: Freddie Yip is a 53 M w hx morbid obesity, HTN, HLD, DM2 c/b microalbuminuria, gout, COPD, who p/w b/l fevers, myalgias, malaise, diarrhea, and flank pain, found to have elevated Cr, consistent with RACHID suspected from acute viral illness and dehydration. 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 Marginal improvement overnight with hydration, from 4.6 to 4.2. - continue LR@125 as no s/sx fluid overload - 24h urine pending - strict I&Os - STACY, ANCA, C3/C4, ESR/CRP - BMP daily - hold metformin, allopurinol, losartan/hctz - Neph consult for additional evaluation Elevated uric acid: f/u Nephrology rec's DM2: uncontrolled, holding home PO, utilize SSI HTN: home toprol 25, holding home hctz/losartan 100/12.5 HLD: home lipitor 10, ASA 81 COPD: nebs prn but not on home O2 Gout: holding allopurinol GERD: holding PPI Morbid obesity: BMI 41 PPx: sqh Activity: ambulate FEN: renal, MIVF as above Lines: PIV Consults: Neph Code: Full Dispo: patient requires inpatient eval and management at this time. Anticipate 2-3 days. Will be homegoing Internal Medicine: Result - Labs CBC & Chem 7: 10/10/18 05:01 10/10/18 05:01 Labs: Short CBC 10/09/18 10/10/18 Range/Units 16:39 05:01 WBC 7.6 6.8 (4.3-11.1) K/mcL Hgb 15.5 13.8 D (12.9-16.9) g/dL Hct 46.3 42.2 (37.5-50.1) % Plt Count 140 115 L (140-400) K/mcL BMP 10/09/18 10/10/18 16:39 05:01 Sodium 136 137 Potassium 3.8 4.1 Chloride 102 101 Carbon Dioxide 21 L 23 BUN 56 H 55 H Creatinine 4.60 H 4.19 H Glucose 205 H 210 H Calcium 8.7 8.5 L Liver Function 10/09/18 Range/Units 16:39 Total Bilirubin 0.6 (0.3-1.0) mg/dL Direct Bilirubin 0.1 (0.0-0.2) mg/dL AST 21 (13-39) Units/L ALT 35 (7-52) Units/L Alkaline Phosphatase 78 (34-104) Units/L Albumin 3.9 (3.5-5.7) g/dL Urine 10/09/18 Range/Units 20:10 Urine Color Yellow (Yellow) Urine Clarity Clear (Clear) Urine pH 5.5 (5.0-8.0) pH Units Ur Specific [place] 1.019 (1.010-1.025) Urine Protein 30 H (Neg-Trace) mg/dL Urine Glucose (UA) Normal (Normal) mg/dL - ABG Interpretation ABG results: PT/INR, D-dimer PT 11.9 Seconds (9.4-12.1) 10/09/18 16:39 Consult Discharge Plan - Plan [facility]errals: [facility] [Primary Care Provider] -
[2018-10-10] MEDS: Aspirin Enteric Coated 81 MG Tablet PO SCH (07:36)
[2018-10-10] MEDS: Insulin LISPRO 300 UNITS/3 ML VIAL SQ SCH ×4 (07:37→20:16)
[2018-10-10] MEDS: Acetaminophen 325 MG TABLET PO PRN ×2 (07:41→20:03)
[2018-10-10] MEDS ORDERED: Metoprolol XL (24 HR) Succ 25 MG TAB.ER.24H PO SCH (09:00)
[2018-10-10 12:53] LABS: Complement C3 125 mg/dL (87-200)
--- NOTE | 2018-10-10 14:45 | Electrocardiograph Report ---
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
--- NOTE | 2018-10-10 15:46 | Nephrology Consult Note ---
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 Gout Psychiatric history: no psych history - Past Surgical History Surgical History: cholecystectomy - Social History Smoking Status: Former smoker Smokeless Tobacco Status: No Alcohol use: none Drug use: none - Family History Mother Hx Family Neurologic Disorders: (Stroke) Father Hx Family Cardiac Disorders: (bypass sx) Medications and Allergies Aspirin [Lo-Dose Aspirin EC] 81 mg PO QAM 10/09/18 [History] Atorvastatin Calcium [Lipitor] 10 mg PO QAM 10/09/18 [History] Cholecalciferol (D-3) [Vitamin D] 4,000 units PO QAM 10/09/18 [History] Dextrose [Glucose] 16 gm PO AD PRN 10/09/18 [History] Dulaglutide [Trulicity] 1.5 mg SQ MO 10/09/18 [History] Glimepiride [Amaryl] 8 mg PO QAM 10/09/18 [History] Insulin Glargine,Hum.rec.anlog [Lantus Solostar] 73 units SQ HS 10/09/18 [History] Losartan/Hydrochlorothiazide [Losartan-Hctz 100-12.5 mg Tab] 1 tab PO QAM 10/09/18 [History] Metformin HCl [Fortamet] 2,000 mg PO QAM 10/09/18 [History] Metoprolol Succinate [Toprol Xl] 25 mg PO QAM 10/09/18 [History] Multivitamin [Daily Multiple Vitamin] 1 tab PO QAM 10/09/18 [History] Omeprazole [PriLOSEC] 20 mg PO QAM 10/09/18 [History] Allergy/AdvReac Type Severity Reaction Status Date / Time No Known Allergies Allergy Unverified 10/09/18 17:59 Exam - Vital Signs Vital signs: Initial Vital Signs Temp Pulse Resp BP Pulse Ox 98.2 F 62 18 140/87 98 10/09/18 12:32 10/09/18 12:32 10/09/18 12:32 10/09/18 12:32 10/09/18 12:32 Vital Signs - Last 8 Hours Temp Pulse Resp BP Pulse Ox 10/10/18 11:39 98.2 F 52 18 130/74 99 Intake and Output 10/09/18 10/10/18 10/10/18 23:59 07:59 15:59 Intake Total 360 / 360 1000 / 1840 840 / 1840 Output Total 400 / 400 800 / 1400 600 / 1400 Balance -40 / -40 200 / 440 240 / 440 Intake: IV Fluids 1000 / 1000 Lactated Ringers 1,000 ML @ 125 1000 / 1000 mls/hr IVC .Q8H OSEAS Rx#: [id number] Oral 360 / 360 840 / 840 Output: Urine 400 / 400 800 / 1400 600 / 1400 Other: Meal Dinner Lunch Percent of Meal Consumed 100% 100% Stool Characteristics Normal for Patient # Voids 1 1 1 Blood Glucose* 245 201 267 Results - Lab Results 10/10/18 05:01 10/10/18 05:01 Most recent lab results 10/10/18 05:01 Calcium 8.5 L Consult Discharge Plan - Plan Referrals: [facility] [Primary Care Provider] -
[2018-10-10 16:07] LABS: Uric Acid 11.8 mg/dL (2.3-7.6)
[2018-10-11 07:33] LABS: Sodium, Urine 29.7 mEq/L
--- NOTE | 2018-10-11 07:42 | Internal Med Progress Note ---
Hospitalist Progress Note - Encounter Date of Encounter: 10/11/18 Time of Encounter: 09:10 - Subjective Interval History: awake, feeling overall improved. Continues to have no diarrhea since admit. no abd pain, nausea, fevers or chills. ivfs were stopped previously and he is working on oral intake of water. Dark yellow urine per pt. He denies any palpita tions, cp, pressure, lightheadedness or dizziness with bradycardia since admission. Notes HR is always low - Exam Vitals: Temp Pulse Resp BP Pulse Ox 98.3 F 53 17 143/72 97 10/11/18 03:50 10/11/18 03:50 10/11/18 03:50 10/11/18 03:50 10/11/18 03:50 Exam: gen- alert, awake,appears stated age eyes- pupils equal round cv- reg rate and rhythm, normal s1,s2, no le edema lungs- ctabl, no wheezing, rhonchi or crackles, normal resp effort on room air abd- soft, non tender, non distended, + bs neuro- AAOx3 - Assessment and Plan (1) RACHID (acute kidney injury) Current Visit: Yes Status: Acute (2) Sinus bradycardia Current Visit: Yes Status: Chronic (3) Hypertension Current Visit: No Status: Chronic (4) Diabetes mellitus Current Visit: Yes Status: Acute - Summary of Assessment and Plan Summary of Assessment and Plan: Freddie Yip is a 53 M w hx morbid obesity, HTN, HLD, DM2 c/b microalbuminuria, gout, COPD, who p/w b/l fevers, myalgias, malaise, diarrhea, and flank pain, He was admitted with RACHID suspected from acute viral illness and dehydration. RACHID: suspected pre-renal given hx nausea/diarrhea on diuretics known underlying CKD with proteinuria and associated with hyperuricemia Improving wth IVFs and now oral rehydration -nephro following, oral hydration, no acute HD need - hold metformin, allopurinol, losartan/hctz Elevated uric acid: f/u Nephrology rec's Sinus Bradycardia -IV mag today, cont to monitor lytes ekg reviewed and no AVBs, no ischemic changes, cont to monitor, will recommend outpt fu as he has seen his PCP for this before and had outpt testing DM2: uncontrolled, holding home PO, uncontrolled on medium sliding scale, requ ired 27 units SSI yesterday, will begin levemir and titrate as needed while inpt HTN: home toprol 25, holding home hctz/losartan 100/12.5 HLD: home lipitor 10, ASA 81 COPD: nebs prn but not on home O2 Gout: holding allopurinol GERD: holding PPI Morbid obesity: BMI 41 PPx: sqh FEN: renal, ADA Dispo: will be to home when medically stable Plan of Care Discussed with: patient Internal Medicine: Result - Labs CBC & Chem 7: 10/10/18 05:01 10/11/18 06:27 - ABG Interpretation ABG results: PT/INR, D-dimer PT 11.9 Seconds (9.4-12.1) 10/09/18 16:39 Consult Discharge Plan - Plan [facility]errals: [facility] [Primary Care Provider] - (3) Hypertension Qualifiers: Hypertension type: essential hypertension Qualified Code(s): I10 - Essential (primary) hypertension (4) Diabetes mellitus Qualifiers: Diabetes mellitus type: type 2 Diabetes mellitus termite treater insulin use: without custodial use Diabetes mellitus complication status: without complication Qualified Code(s): E11.9 - Type 2 diabetes mellitus without complications
[2018-10-11 07:47] LABS: Calcium 8.9 mg/dL (8.6-10.3); Potassium 3.9 mEq/L (3.5-5.1); Uric Acid 11.6 mg/dL (2.3-7.6)
[2018-10-11 07:50] LABS: Magnesium 1.8 mg/dL (1.6-2.6)
[2018-10-11] MEDS: *HR* Heparin 5,000 UNIT/ML VIAL SQ SCH ×2 (08:09→17:36)
[2018-10-11] MEDS: Aspirin Enteric Coated 81 MG Tablet PO SCH (08:09)
[2018-10-11] MEDS: Insulin LISPRO 300 UNITS/3 ML VIAL SQ SCH ×4 (08:10→20:32)
[2018-10-11] MEDS: Acetaminophen 325 MG TABLET PO PRN (08:16)
[2018-10-11] MEDS: Insulin DETEMIR 100 UNIT/ML X5UNITS SQ SCH (13:14)
--- NOTE | 2018-10-11 19:06 | Nephrology Progress Note ---
Date of Encounter: 10/11/18 Time of Encounter: 12:00 - Assessment and Plan (1) RACHID (acute kidney injury) Current Visit: Yes Status: Acute SCr continues to improve at 3.35, GFR 19 Continue po fluids UOP noted at 2350cc in the past 24hrs which is great Continue to avoid nephrotoxins if possible (2) Hyperuricemia Current Visit: Yes Status: Acute Uric acid level slowly improving, increase clearance with more UOP No rasburicase or allopurinol needed yet Follow daily levels till WNl (3) Sinus bradycardia Current Visit: Yes Status: Chronic Per primary Subjective Interval history: Pt seen and examined with no complaints except for fatigue as he was not able to sleep much last night due to an episode of bradycardia down to the 30s for which he was awaken to ambulate Objective - Vital Signs Vital signs: Vital Signs Temp Pulse Resp BP Pulse Ox 10/11/18 18:28 97.9 F 50 18 155/89 97 10/11/18 15:13 98.0 F 48 18 151/88 97 10/11/18 11:03 98.0 F 45 18 142/83 96 10/11/18 08:20 97 10/11/18 07:54 97.4 F L 45 18 125/83 97 10/11/18 03:50 98.3 F 53 17 143/72 97 10/10/18 23:14 98.7 F 48 17 123/76 97 10/10/18 20:16 98.5 F 43 18 141/83 95 10/10/18 20:03 95 Intake and Output 10/11/18 10/11/18 10/11/18 07:59 15:59 23:59 Intake Total 600 / 600 Output Total 500 / 500 0 / 500 Balance -500 / 100 600 / 100 Intake: Oral 600 / 600 Output: Urine 500 / 500 0 / 500 Other: Meal Lunch Percent of Meal Consumed 100% Blood Glucose* 231 427 238 - General Appearance General appearance: Present: well-developed, well-nourished EENT: Present: ATNC, mucous membranes moist Neck: Present: no JVD, supple Respiratory: Present: clear (ant bilat) Cardiology: Present: no edema, normal S1, normal S2 Gastrointestinal: Present: no tenderness, no guarding, obese Integumentary: Present: warm and dry Neurologic: Present: no focal deficit Musculoskeletal: Present: no deformities Psychiatric: Present: mood/affect appropriate, cooperative - Lab 10/10/18 05:01 10/11/18 18:05 Most recent lab results 10/10/18 10/11/18 20:10 06:27 Calcium 8.9 Magnesium 1.8 Urine Creatinine 54 Urine Sodium 29.7 Consult Discharge Plan - Plan Referrals: [facility] [Primary Care Provider] -
[2018-10-11 21:04] LABS: Protein/Creatinine Ratio,Urine 0.33 mg/mg (0.00-0.20)
[2018-10-11 21:09] LABS: Total Volume 24 Hour,Urine 2.77 Liters (0.80-1.80)
[2018-10-11] MEDS ORDERED: Saline Nasal Spray 44 ML BOTTLE NS PRN (22:25)
[2018-10-12] MEDS: *HR* Heparin 5,000 UNIT/ML VIAL SQ SCH ×3 (00:41→16:15)
[2018-10-12] MEDS: Aspirin Enteric Coated 81 MG Tablet PO SCH (07:45)
[2018-10-12] MEDS: Insulin LISPRO 300 UNITS/3 ML VIAL SQ SCH ×4 (07:45→22:05)
--- NOTE | 2018-10-12 08:00 | Internal Med Progress Note ---
Hospitalist Progress Note - Encounter Date of Encounter: 10/12/18 Time of Encounter: 08:40 - Subjective Interval History: awake. having nasal congestion today, clear nasal discharge. urinating with yellow urine. no diarrhea. drinking good amount of water. - Exam Vitals: Temp Pulse Resp BP Pulse Ox 97.8 F 52 17 133/88 97 10/12/18 07:40 10/12/18 07:40 10/12/18 07:40 10/12/18 07:40 10/12/18 07:40 Exam: gen- alert, awake,appears stated age cv- reg rate and rhythm, normal s1,s2, no le edema lungs- ctabl, no wheezing, normal resp effort on room air abd- soft, non tender, non distended, + bs sin- warm, dry, no rash neuro- AAOx3 - Assessment and Plan (1) RACHID (acute kidney injury) Current Visit: Yes Status: Acute (2) Sinus bradycardia Current Visit: Yes Status: Chronic (3) Hypertension Current Visit: No Status: Chronic (4) Diabetes mellitus Current Visit: Yes Status: Chronic - Summary of Assessment and Plan Summary of Assessment and Plan: Freddie Yip is a 53 M w hx morbid obesity, HTN, HLD, DM2 c/b microalbuminuria, gout, COPD, who p/w b/l fevers, myalgias, malaise, diarrhea, and flank pain, He was admitted with RACHID suspected from acute viral illness and dehydration. RACHID: suspected pre-renal given hx nausea/diarrhea on diuretics , improving known underlying CKD with proteinuria and associated with hyperuricemia Improved wth IVFs and now oral rehydration -nephro following, oral hydration, no acute HD need, no intervention required for hyperuricemia at this time -urine studies from 24h collection are pending - hold metformin, allopurinol, losartan/hctz Elevated uric acid: as per nephro no medication required at this time Sinus Bradycardia, stable and asx ekg no AVBs, no ischemic changes, -cont to monitor, will recommend outpt fu as he has seen his PCP for this before and had outpt testing DM2: uncontrolled, holding home PO meds, began levemir and titrate as needed while inpt toward home dosing, currently this morning under 200 glucose HTN: home toprol 25 held as above, holding home hctz/losartan 100/12.5, if need to initate another med will consider hydralazine, cont to moniitor bps HLD: statin COPD: nebs prn but not on home O2 Gout: holding allopurinol GERD: holding PPI Morbid obesity: BMI 41 PPx: sqh FEN: renal, ADA Dispo: will be to home when medically stable Plan of Care Discussed with: patient Internal Medicine: Result - Labs CBC & Chem 7: 10/10/18 05:01 10/12/18 05:39 Labs: BMP 10/11/18 10/11/18 18:05 18:05 Creatinine 2.90 H TNP - ABG Interpretation ABG results: PT/INR, D-dimer PT 11.9 Seconds (9.4-12.1) 10/09/18 16:39 Consult Discharge Plan - Plan Referrals: [facility] [Primary Care Provider] - (3) Hypertension Qualifiers: Hypertension type: essential hypertension Qualified Code(s): I10 - Essential (primary) hypertension (4) Diabetes mellitus Qualifiers: Diabetes mellitus type: type 2 Diabetes mellitus terminal supervisor insulin use: without terminal supervisor use Diabetes mellitus complication status: without complication Qualified Code(s): E11.9 - Type 2 diabetes mellitus without complications
[2018-10-12 08:29] LABS: Calcium 8.8 mg/dL (8.6-10.3); Potassium 4.2 mEq/L (3.5-5.1)
[2018-10-12 11:04] LABS: ANA IgG by ELISA NONE DETECTED (None Detected)
[2018-10-12] MEDS ORDERED: amLODIPine 5 MG TABLET PO SCH (11:15)
[2018-10-12] MEDS: Insulin DETEMIR 100 UNIT/ML X5UNITS SQ SCH (11:58)
[2018-10-12 13:16] LABS: Myeloperoxidase Ab 0 AU/mL (0-19); Serine Protease-3 Antibody 1 AU/mL (0-19)
[2018-10-12] MEDS: Fluticasone Propionate Nasal 50 MCG/SPRAY BOTTLE NS SCH (16:18)
--- NOTE | 2018-10-12 19:05 | Nephrology Progress Note ---
Date of Encounter: 10/12/18 Time of Encounter: 12:00 - Assessment and Plan (1) RACHID (acute kidney injury) Current Visit: Yes Status: Acute SCr continues to improve at 2.59, GFR 26 Continue po fluids UOP noted at 900cc in the past 24hrs which is great Continue to avoid nephrotoxins if possible Will signoff, please reconsult prn (2) Hyperuricemia Current Visit: Yes Status: Acute Uric acid level slowly improving, increased clearance with more UOP No rasburicase or allopurinol needed yet Follow daily levels till WNl (3) Sinus bradycardia Current Visit: Yes Status: Chronic Subjective Interval history: Pt seen and examined with no complaints, doing well overall. Eager to go home soon. Objective - Vital Signs Vital signs: Vital Signs Temp Pulse Resp BP Pulse Ox 10/12/18 18:44 98.1 F 50 18 152/86 98 10/12/18 16:00 98.2 F 51 17 153/83 98 10/12/18 11:49 97.6 F 48 17 131/81 99 10/12/18 07:40 97.8 F 52 17 133/88 97 10/12/18 04:12 97.7 F 52 18 139/78 95 10/12/18 03:41 18 99 10/12/18 00:42 15 98 10/12/18 00:00 98 F 50 18 148/82 98 Intake and Output 10/12/18 10/12/18 10/12/18 07:59 15:59 23:59 Intake Total 0 / 240 240 / 240 Output Total 500 / 500 Balance -500 / -260 240 / -260 Intake: Oral 0 / 240 240 / 240 Output: Urine 500 / 500 Other: Meal Breakfast Percent of Meal Consumed 100% Blood Glucose* 184 231 258 - Lab 10/10/18 05:01 10/12/18 05:39 Most recent lab results 10/12/18 05:39 Calcium 8.8 Magnesium 2.0 Consult Discharge Plan - Plan Referrals: [facility] [Primary Care Provider] -
[2018-10-13] MEDS: *HR* Heparin 5,000 UNIT/ML VIAL SQ SCH ×3 (00:09→16:30)
[2018-10-13 06:24] LABS: Potassium 4.2 mEq/L (3.5-5.1); Uric Acid 9.9 mg/dL (2.3-7.6)
--- NOTE | 2018-10-13 07:40 | Internal Med Progress Note ---
Hospitalist Progress Note - Encounter Date of Encounter: 10/13/18 Time of Encounter: 09:10 - Subjective Interval History: awake, continues to urinate yellow urine, no fevers, chills, joint pain. discussed nephro recs for normal uric acid prior to leaving and agreeable to stay for repeat labs in am to ensure no treatment required. - Exam Vitals: Temp Pulse Resp BP Pulse Ox 98 F 48 18 146/86 143 10/13/18 03:54 10/13/18 03:54 10/13/18 03:54 10/13/18 03:54 10/13/18 03:54 Exam: gen- alert, awake,appears stated age cv- reg rate and rhythm, normal s1,s2, no le edema lungs- ctabl, normal resp effort on room air abd- soft, non tender, non distended, sin- warm, dry, no rash neuro- AAOx3 - Assessment and Plan (1) RACHID (acute kidney injury) Current Visit: Yes Status: Acute (2) Sinus bradycardia Current Visit: Yes Status: Chronic (3) Hypertension Current Visit: No Status: Chronic (4) Diabetes mellitus Current Visit: Yes Status: Chronic (5) Hyperuricemia Current Visit: Yes Status: Acute - Summary of Assessment and Plan Summary of Assessment and Plan: Freddie Yip is a 53 M w hx morbid obesity, HTN, HLD, DM2 c/b microalbuminuria, gout, COPD, who p/w b/l fevers, myalgias, malaise, diarrhea, and flank pain, He was admitted with RACHID suspected from acute viral illness and dehydration. RACHID: suspected pre-renal given hx nausea/diarrhea on diuretics , improving known underlying CKD with proteinuria and associated with hyperuricemia Improved wth IVFs and now oral rehydration -nephro rec for oral hydration, no acute HD need, no intervention required for hyperuricemia at this time, check uric acid daily until normal -will require outpt nephro fu on dc - hold metformin, allopurinol, losartan/hctz Elevated uric acid: as per nephro no medication required at this time, daily checks Sinus Bradycardia, stable and asx ekg no AVBs, no ischemic changes, -cont to monitor, will recommend outpt fu as he has seen his PCP for this before and had outpt testing DM2: uncontrolled, holding home PO meds,increase levemir and titrate as needed w [place] inpt toward home dosing, will resume home regimen on dc HTN: home toprol 25 held as above, holding home hctz/losartan 100/12.5, iadded hydralazine this am with good effect, will need outpt monitoring and further adjustments by pcp HLD: statin COPD: nebs prn but not on home O2 Gout: holding allopurinol Morbid obesity: BMI 41 PPx: sqh FEN: renal, ADA Dispo: will be to home when medically stable, hopefully in next 24 hr pending uric acid level in am Plan of Care Discussed with: patient Internal Medicine: Result - Labs CBC & Chem 7: 10/10/18 05:01 10/13/18 05:34 Labs: BMP 10/12/18 10/13/18 05:39 05:34 Sodium 140 141 Potassium 4.2 4.2 Chloride 107 105 Carbon Dioxide 21 L 26 BUN 44 H 40 H Creatinine 2.59 H 2.32 H Glucose 195 H 206 H Calcium 8.8 9.0 - ABG Interpretation ABG results: PT/INR, D-dimer PT 11.9 Seconds (9.4-12.1) 10/09/18 16:39 Consult Discharge Plan - Plan Referrals: [facility] [Primary Care Provider] - (3) Hypertension Qualifiers: Hypertension type: essential hypertension Qualified Code(s): I10 - Essential (primary) hypertension (4) Diabetes mellitus Qualifiers: Diabetes mellitus type: type 2 Diabetes mellitus intermediate school teacher insulin use: chaim peck intermediate school teacher use Diabetes mellitus complication status: without complication Qualified Code(s): E11.9 - Type 2 diabetes mellitus without complications
[2018-10-13] MEDS: Insulin DETEMIR 100 UNIT/ML X5UNITS SQ SCH (08:44)
[2018-10-13] MEDS: Aspirin Enteric Coated 81 MG Tablet PO SCH (08:44)
[2018-10-13] MEDS: hydrALAZINE 10 MG TABLET PO SCH ×3 (08:44→21:04)
[2018-10-13] MEDS: Insulin LISPRO 300 UNITS/3 ML VIAL SQ SCH ×4 (08:45→21:05)
[2018-10-13] MEDS: Fluticasone Propionate Nasal 50 MCG/SPRAY BOTTLE NS SCH (08:45)
[2018-10-13] MEDS ORDERED: Insulin DETEMIR 100 UNIT/ML X5UNITS SQ ONE (12:00)
[2018-10-13] MEDS: Acetaminophen 325 MG TABLET PO PRN (16:33)
[2018-10-14] MEDS: *HR* Heparin 5,000 UNIT/ML VIAL SQ SCH ×2 (00:16→08:26)
--- NOTE | 2018-10-14 07:37 | Discharge Summary ---
- NOTES TO OUTPATIENT PROVIDER Notes to Outpatient Provider: RACHID and levated uric acid. levels near normal on dc. requires nephro folow up and bmp + uric acid level 10/16/18. rxs provided. Has asymptomatic sinus bradycardia with resting heart rate 50s (40s while asleep). Beta Domingo has been stopped. Nephrotoxic anti hypertenisives also stopped. BP normotensive on new hydralazine. Further management outpt. Metformin temporarily held awaiting return of normal creat. Creat 2.07 and Uric acid 8.9 on dc Orders not resulted at time of discharge: Pending orders 10/14/18 06:14 BMP [Basic Metabolic Panel] AM 0400 Uric Acid AM 0400 Date of Encounter: 10/14/18 Time of Encounter: 10:00 - Discharge Diagnosis (1) RACHID (acute kidney injury) Priority: Primary Status: Acute Assessment and Plan: RACHID: suspected pre-renal given hx nausea/diarrhea on diuretics , improving creat on admit 4.6, 2.07 on dc known underlying CKD with proteinuria and associated with hyperuricemia Improved wth IVFs and then oral rehydration -nephro followed, he had no acute HD need, no intervention required for hyperuricemia -will require outpt nephro fu on dc - hold metformin, losartan/hctz on dc; he is no longer taking allopurinol which pharmacy updated in med rec -BMP at [facility] 10/16 (2) Hyperuricemia Priority: Secondary Status: Acute Assessment and Plan: as above improved 12.4 on admit, 8.9 on dc -uric acid level at [facility] 10/16, outpt nephro fu (3) Sinus bradycardia Priority: Secondary Status: Chronic Assessment and Plan: Sinus Bradycardia, stable and asx ekg no AVBs, no ischemic changes, -will recommend outpt fu as he has seen his PCP for this before and had outpt testing -stopped BB (4) Hypertension Priority: Secondary Status: Chronic Assessment and Plan: HTN: home toprol 25 held throughout admit as well as hctz/losartan as above -cont hydralazine 10 mg TID on dc, normotensive with current dosing, outpt monitoring and further adjustments by pcp Qualifiers: Hypertension type: essential hypertension Qualified Code(s): I10 - Essential (primary) hypertension (5) Diabetes mellitus Priority: Secondary Status: Chronic Assessment and Plan: -cont to hold metformin on dc, resume rest of extensive matty eoral and SQ regimen on dc, fu with pcp Qualifiers: Diabetes mellitus type: type 2 Diabetes mellitus exterminator helper insulin use: without exterminator helper use Diabetes mellitus complication status: without complication Qualified Code(s): E11.9 - Type 2 diabetes mellitus without complications Hospital course: Mr. Yip is a 53 year old male hx morbid obesity, HTN, HLD, DM2, CKD3a, gout, COPD, who p/w renal failure. Nephrology followed throughout his admission. He was found to have elevated uric acid as well. He did NOT require HD this admission. Both creat and uric acid improved with IVFs then continued to improve with IV hydration. He was found to have asx sinus bradycardia. His home BB was held. EKG was unremarkable. His hypertension med regimen was adjusted this admission due to RACHID and bradycardia. The full details of his hospital course can be found in the diagnoses section of this document. He will require [facility] [place] Team follow up and Nephro follow up upon dc. He is discharged ot home in stable condition with his . He has been given rx for new bp med, instructed onmeds to hold on dc and given rx for labs at [facility] on Monday 10/16. Discharge discussed with: patient, nurse, social work Time spent discussing smoking cessation with patient: more than 10 minutes - Time Spent with Patient Total time spent providing and/or coordinating discharge services: Time spent: Greater than 30 minutes (40 min) - Discharge Medications Prescriptions: New hydrALAZINE [HydrALAZINE] 10 mg PO TID #90 tablet Continued Omeprazole [PriLOSEC] 20 mg PO QAM Glimepiride [Amaryl] 8 mg PO QAM Atorvastatin Calcium [Lipitor] 10 mg PO QAM Dulaglutide [Trulicity] 1.5 mg SQ MO Aspirin [Lo-Dose Aspirin EC] 81 mg PO QAM Cholecalciferol (D-3) [Vitamin D] 4,000 units PO QAM Dextrose [Glucose] 16 gm PO AD PRN PRN Reason: LOW BLOOD SUGAR Insulin Glargine,Hum.rec.anlog [Lantus Solostar] 73 units SQ HS Multivitamin [Daily Multiple Vitamin] 1 tab PO QAM Discontinued Losartan/Hydrochlorothiazide [Losartan-Hctz 100-12.5 mg Tab] 1 tab PO QAM Metformin HCl [Fortamet] 2,000 mg PO QAM Metoprolol Succinate [Toprol Xl] 25 mg PO QAM Home Medications: Aspirin [Lo-Dose Aspirin EC] 81 mg PO QAM 10/09/18 [History] Atorvastatin Calcium [Lipitor] 10 mg PO QAM 10/09/18 [History] Cholecalciferol (D-3) [Vitamin D] 4,000 units PO QAM 10/09/18 [History] Dextrose [Glucose] 16 gm PO AD PRN 10/09/18 [History] Dulaglutide [Trulicity] 1.5 mg SQ MO 10/09/18 [History] Glimepiride [Amaryl] 8 mg PO QAM 10/09/18 [History] Insulin Glargine,Hum.rec.anlog [Lantus Solostar] 73 units SQ HS 10/09/18 [History] Multivitamin [Daily Multiple Vitamin] 1 tab PO QAM 10/09/18 [History] Omeprazole [PriLOSEC] 20 mg PO QAM 10/09/18 [History] hydrALAZINE [HydrALAZINE] 10 mg PO TID #90 tablet 10/14/18 [Rx] Allergies/Adverse Reactions: Allergy/AdvReac Type Severity Reaction Status Date / Time No Known Allergies Allergy Unverified 10/09/18 17:59 Date of admission: 10/09/18 15:53 Primary care physician: [facility] Consults: 10/09/18 14:29 Consult to Nephrology [CONS] Stat Consulting Provider: Kidney Rhonda/YRN/MICHAEL/AMELIA Reason for Consult: chronic vs acute renal failure Time Notified: 14:30 Call Completed: Yes Discharging clinician: Renetta Leonard - Constitutional Vitals: Temp Pulse Resp BP Pulse Ox 97.8 F 51 18 128/82 97 10/14/18 06:56 10/14/18 06:56 10/14/18 06:56 10/14/18 06:56 10/14/18 06:56 Exam: awake, no family present. He is feeling well, at baseline. clear yellow urine. no ab pain. no joint pain. denies as he always has cp, pressure, sob or palpitations. no presyncope. discussed dc plan in detail and he is happy to go. answered all questions. gen- alert, awake,appears stated age cv- hieu rate and reg rhythm, normal s1,s2, no murmurs, no le edema lungs- ctabl, normal resp effort on room air abd- soft, non tender, non distended, + bs neuro- AAOx3 - Patient Status Disposition: Home, Self-Care Condition: Good Functional capacity at discharge: independent ambulation Overall status at discharge: patient is back to baseline - Ambulatory Orders Ambulatory Orders: Basic Metabolic Panel [CHEM] Time Frame: 2 Days, Location: [facility] Uric Acid [CHEM] Time Frame: 2 Days, Location: [facility] - Discharge Instructions Follow Up With: [facility],PCP [Primary Care Provider] - Ronald Martinez MD [Partnered Physician] - Additional Instructions: SOME OF YOUR HOME MEDDS WERE STOPPED OR CHANGED TO PROTECT YOUR KIDNEYS REVIEW THE LIST CAREFULLY YOUR PCP MAY CHOOSE TO RESTART SOME OF THESE WHEN KIDNEYS ARE AGAIN NORMAL DISCUSSED YOU REQUIRE LABS ON TUESDAY AT THE [facility]- BMP AND URIC ACID CHECK YOU ARE BEING STARTED ON THE BP MEDICATION HYDRALAZINE. YOU HAVE RECEIVED A PRESCRIPTION FOR THIS MEDICATION AND SHOULD HAVE IT FILLED IMMEDIATELY WE DISCUSSED. contact your [facility] [place] Team with any changes in urination, amount of urine which could indicate a worsening of your kidney function; headahce/vision changes/chest pain that could indicate high blood pressure - Diet and Activity Activity: increase activity as tolerated Diet: advance to your usual diet
[2018-10-14 07:38] LABS: Calcium 8.8 mg/dL (8.6-10.3); Potassium 4.5 mEq/L (3.5-5.1); Uric Acid 8.9 mg/dL (2.3-7.6)
[2018-10-14] MEDS: Aspirin Enteric Coated 81 MG Tablet PO SCH (08:26)
[2018-10-14] MEDS: hydrALAZINE 10 MG TABLET PO SCH (08:26)
[2018-10-14] MEDS: Fluticasone Propionate Nasal 50 MCG/SPRAY BOTTLE NS SCH (08:27)
[2018-10-14] MEDS: Insulin LISPRO 300 UNITS/3 ML VIAL SQ SCH ×2 (08:27→12:04)
[2018-10-14] MEDS ORDERED: Insulin DETEMIR 100 UNIT/ML X5UNITS SQ SCH (09:00)
[2018-10-14 11:53] VITALS: BP 148/85
== END 2018-10-14 13:49 | disposition home or self-care (01) | DRG 683 ==
LOC: EMEROOARM 12:25 → 2ANU 12:25 → SUATTDRO 15:28 → 2ANU 16:22
PROVIDERS: ADMIT Internal Medicine; ATTEND Internal Medicine

== ENCOUNTER 2019-11-23 09:26 | Observation (INO) ==
[2019-11-23] MEDS ORDERED: Aspirin 81 MG TAB.CHEW PO ONE (09:34)
[2019-11-23 10:01] LABS: Basophils % 0.4 %; Eosinophils # 0.1 K/mcL (0.0-0.6); Eosinophils % 1.5 %; Hematocrit 48.9 % (37.5-50.1); Hemoglobin 16.4 g/dL (12.9-16.9); Immature Granulocytes % 0.2 % (0-4); Lymphocytes # 2.5 K/mcL (0.6-4.6); Lymphocytes % 26.7 %; Mean Corpuscular HGB Conc 33.5 g/dL (31.6-35.5); Mean Corpuscular Hemoglobin 28.5 pg (28.0-33.3); Mean Platelet Volume 11.8 fL (9.4-12.4); Monocytes # 0.5 K/mcL (0.0-1.3); Monocytes % 5.8 %; Platelet Count 173 K/mcL (140-400); Red Blood Count 5.75 M/mcL (4.19-5.50); Red Cell Distribution Width 12.9 % (11.5-14.5); Segmented Neutrophils % 65.4 %; White Blood Count 9.2 K/mcL (4.3-11.1)
[2019-11-23 10:05] LABS: VBG HCO3 24 mEq/L (21-27); VBG PCO2 34 mmHg (41-51); VBG PH 7.46 pH Units (7.32-7.42); VBG PO2 104 mmHg (25-50)
[2019-11-23 10:09] LABS: Prothrombin Time 11.9 Seconds (9.4-12.1)
[2019-11-23 10:12] LABS: Activated Partial Thrombo Time 34.8 Seconds (26.0-36.0)
[2019-11-23 10:16] LABS: BUN/Creatinine Ratio 14 (6-26); Blood Urea Nitrogen 15 mg/dL (6-20); Calcium 9.3 mg/dL (8.6-10.3); Carbon Dioxide 23 mEq/L (23-29); Chloride 101 mEq/L (98-107); Glucose 360 mg/dL (70-105); Osmolality,Calculated 291 (280-300); Potassium 3.7 mEq/L (3.5-5.1); Sodium 133 mEq/L (136-145); Troponin I < 0.03 ng/mL (< 0.04); eGFR For African Americans > 60 (> 60); eGFR For Non-African Americans > 60 (> 60)
[2019-11-23] MEDS ORDERED: 0.9 % Sodium Chloride 1,000 ML IVC STA (11:00)
[2019-11-23] MEDS ORDERED: Ondansetron 4 MG/2 ML VIAL IVP PRN (11:37)
[2019-11-23] MEDS ORDERED: Naloxone 0.4 MG/ML INJ IVP PRN (11:37)
[2019-11-23] MEDS ORDERED: Perflutren Lipid Microsphere 1.3 ML in 0.9 % Sodium Chloride 8.7 ML IVP PRN (11:39)
[2019-11-23] MEDS ORDERED: *HR* Dextrose 50 % in Water (Vial) 50 ML VIAL IVP PRN (11:40)
[2019-11-23] MEDS ORDERED: D5% in Water 1,000 ML IVC PRN (11:40)
[2019-11-23] MEDS ORDERED: Dextrose Gel 15 GM/37.5 ML TUBE PO PRN ×2 (11:40)
[2019-11-23 12:06] LABS: Bilirubin,Urine Negative (Negative); Blood,Urine Trace (Negative); Clarity,Urine Clear (Clear); Color,Urine Light-Yellow (Yellow); Glucose,Urine (UA) >=1000 mg/dL (Normal); Ketones,Urine Negative (Negative); Leukocyte Esterase,Urine Negative (Negative); Nitrite,Urine Negative (Negative); PH,Urine 6.5 pH Units (5.0-8.0); Protein,Urine >=300 mg/dL (Neg-Trace); RBC,Urine 0-3 per hpf (0-3); Specific Gravity,Urine 1.027 (1.010-1.025); Squamous Epithelial Cell,Urine Few per hpf (None-Few); Urobilinogen,Urine Normal (Normal); WBC,Urine 0-3 per hpf (0-3)
[2019-11-23] MEDS: *HR* Heparin 5,000 UNIT/ML VIAL SQ SCH (18:12)
[2019-11-23] MEDS: Insulin LISPRO 300 UNITS/3 ML VIAL SQ SCH (18:14)
[2019-11-23] MEDS ORDERED: Insulin DETEMIR 100 UNIT/ML X5UNITS SQ SCH (21:00)
[2019-11-24] MEDS: *HR* Heparin 5,000 UNIT/ML VIAL SQ SCH (06:00)
[2019-11-24] MEDS ORDERED: Regadenoson 0.4 MG/5 ML SYRINGE IVP ONE (06:43)
[2019-11-24] MEDS ORDERED: Cholecalciferol (D-3) 1,000 UNIT (25MCG) TABLET PO SCH (09:00)
[2019-11-24] MEDS ORDERED: EMPAGLIFLOZIN 12.5 MG PO SCH (09:00)
[2019-11-24] MEDS ORDERED: Aspirin Enteric Coated 81 MG Tablet PO SCH (09:00)
[2019-11-24] MEDS ORDERED: gemfibroziL 600 MG TABLET PO SCH (09:00)
[2019-11-24] MEDS: Insulin LISPRO 300 UNITS/3 ML VIAL SQ SCH ×2 (11:22→12:45)
[2019-11-24 11:28] VITALS: BP 147/88
== END 2019-11-24 14:59 | disposition home or self-care (01) ==
LOC: EMEROOARM 09:26 → 3ANU 09:26 → SUATTDRO 11:43 → 3ANU 12:55
PROVIDERS: ADMIT Internal Medicine; ATTEND Family Medicine